=== PATIENT | male | born 1985 | race Caucasian/White ===

== ENCOUNTER 2018-12-31 09:19 | Emergency (ER) | payer OTHER ==
[~2018-12-31] VITALS: Ht 190.5 cm; Wt 63.5 kg
[2018-12-31 09:21] VITALS: BP 134/104
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
--- NOTE | 2018-12-31 09:34 | NUR ---
DR. BEARD EVALUATING PT AT BEDSIDE
--- NOTE | 2018-12-31 10:05 | NUR ---
Patient taken for Xray
--- NOTE | 2018-12-31 10:14 | NUR ---
Direct Mail Manager at bedside
[2018-12-31 10:24] LABS: BASOPHILS % (AUTO) 0.4 % (0.0-2.0); EOSINOPHILS # (AUTO) 0.2 K/uL (0-0.4); EOSINOPHILS % (AUTO) 2.5 % (0.0-4.0); HEMATOCRIT 48.5 % (36-52); HEMOGLOBIN 15.8 g/dL (12.0-18.0); LYMPHOCYTES # (AUTO) 1.3 K/uL (2.0-11.5); LYMPHOCYTES % (AUTO) 15.5 % (20.5-51.1); MEAN CORPUSCULAR HEMOGLOBIN 29 pg (27-31); MEAN CORPUSCULAR HGB CONC 33 g/dL (33-37); MEAN CORPUSCULAR VOLUME 89.9 fL (80-94); MONOCYTES # (AUTO) 0.4 K/uL (0.8-1.0); MONOCYTES % (AUTO) 5.1 % (1.7-9.3); NEUTROPHILS # (AUTO) 6.4 K/uL (1.8-7.7); NEUTROPHILS % (AUTO) 76.5 % (42.2-75.2); PLATELET COUNT (AUTO) 223 K/uL (140-450); RED CELL DISTRIBUTION WIDTH 13.8 % (11.6-13.7); WHITE BLOOD COUNT (AUTO) 8.4 K/uL (4.8-10.8)
--- NOTE | 2018-12-31 10:28 | NUR ---
Patient states unable to give urine sample now, asked for water. Cup of water provided to patient.
[2018-12-31 10:31] LABS: ANION GAP 10.9 (8-16); POTASSIUM 3.9 mmol/L (3.5-5.1)
[2018-12-31] MEDS ORDERED: ESCI10TA PO (10:49)
--- NOTE | 2018-12-31 11:00 | NUR ---
Urine collected and walked to lab.
[2018-12-31 11:27] LABS: BARBITURATE, URINE NEG. ng/ml (NEG <=200); CANNABINOID, URINE NEG. ng/mL (NEG <=50); COCAINE, URINE NEG. ng/mL (NEG <=300); OPIATE, URINE NEG. ng/mL (NEG <=2000); PHENCYCLIDINE SCREEN,URINE NEG. ng/mL (NEG <=25)
--- NOTE | 2018-12-31 11:27 | NUR ---
Mother Racquel called, left her callback # [phone], wants to be notified if patient is discharged, admitted, or transferred to another facility.
[2018-12-31 11:38] LABS: BENZODIAZEPINE, URINE NEG ng/mL (NEG <=200)
--- NOTE | 2018-12-31 12:19 | NUR ---
Pt medically clear by Dr. Mendoaz. Clinicals to be faxed to [facility].
--- NOTE | 2018-12-31 14:20 | NUR ---
Pt ambulated to restroom, assisted by summer Hobbs. Pt placed back into bed 5, calm and cooperative.
--- NOTE | 2018-12-31 15:25 | NUR ---
spoke with Deonna from [facility] regarding patient's condition.
--- NOTE | 2018-12-31 15:30 | NUR ---
[facility] WAS CALLED TO SET UP TRANSPORTATION, ETA 30MIN. FAXED [facility] RECEIVED CONFIRMATION.
--- NOTE | 2018-12-31 15:40 | NUR ---
LEFT VOICEMAIL FOR MOTHER ROBBY INFORMING HER OF PLAN TO TRANSFER TO [facility].
--- NOTE | 2018-12-31 15:52 | NUR ---
REPORT GIVEN TO [facility] STAFF WHO ARE HERE TO TRANSFER PATIENT TO [facility].
--- NOTE | 2018-12-31 15:53 | NUR ---
Patient Tranfers to outside Facility [facility]. REPORT TO PORFIRIO AT [facility] Physician: DR. RAY Location: [facility] STAFF PLACING PATIENT IN [facility] AT THIS TIME.
[2018-12-31 15:54] VITALS: BP 131/89
== END 2018-12-31 15:53 ==
LOC: MED 09:19
DX: M79.89 Other specified soft tissue disorders (principal); F41.9 Anxiety disorder, unspecified; F32.9 Major depressive disorder, single episode, unspecified; Z79.899 Other long term (current) drug therapy
CPT/HCPCS: 36415; 73130; 80048; 80305; 85025; 99285; G0482; 99284